=== PATIENT | male | born 1955 ===

== ENCOUNTER 2018-03-07 01:50 | Day surgery (SDC) | payer OTHER, BC ==
[~2018-03-07] VITALS: Ht 175.3 cm; Wt 82.6 kg
[~2018-03-07 01:50] MED LIST: LIDOCAINE/SOD BICARB 8.4% SYR ID ONE; NORMOSOL R SOLN(*) 1000 ML BAG 1,000 ML IV PRN; SIMV-54 PO
[2018-03-07 10:00] VITALS: BP 130/87
[2018-03-07] MEDS ORDERED: NORMOSOL R SOLN(*) 1000 ML BAG 1,000 ML IV PRN (10:15)
[2018-03-07] MEDS ORDERED: LIDOCAINE/SOD BICARB 8.4% SYR ID ONE (10:15)
[2018-03-07] MEDS ORDERED: PROPOFOL EMUL(*) 10MG/ML 20 ML 20 ML ONE (10:21)
[2018-03-07 11:31] VITALS: BP 101/71
[2018-03-07 11:56] VITALS: BP_SYST 125; BP_DIAS 79; BP_DIAS 83
[2018-03-07 11:59] VITALS: BP 114/84
== END 2018-03-07 12:17 | disposition home or self-care (01) ==
LOC: OR 01:50
PROVIDERS: ATTEND Family Medicine
DX: Z12.11 Encounter for screening for malignant neoplasm of colon (principal); N40.2 Nodular prostate without lower urinary tract symptoms
CPT/HCPCS: 00812; 45378; J2704

== ENCOUNTER → 2018-05-22 | Outpatient (REF) | payer BC, OTHER ==
[~2018-05-22] MED LIST changes: -LIDOCAINE/SOD BICARB 8.4% SYR ID ONE; -NORMOSOL R SOLN(*) 1000 ML BAG 1,000 ML IV PRN
== END ==
LOC: ZZSENDIN 12:00
PROVIDERS: ATTEND Urology
DX: N41.1 Chronic prostatitis (principal); N42.89 Other specified disorders of prostate
CPT/HCPCS: 88305; 88344

== ENCOUNTER → 2018-11-25 | Outpatient (CLI) | payer OTHER | LOC: LAB 15:03 | PROVIDERS: ATTEND Urology | DX: N40.2 Nodular prostate without lower urinary tract symptoms (principal); Z80.42 Family history of malignant neoplasm of prostate | CPT/HCPCS: 36415; 84153 ==

== ENCOUNTER → 2018-12-19 | Outpatient (CLI) | payer OTHER | LOC: LAB 13:22 | PROVIDERS: ATTEND Urology | DX: R97.20 Elevated prostate specific antigen [PSA] (principal) | CPT/HCPCS: 36415; 84153 ==